=== PATIENT | female | born 1975 ===

== ENCOUNTER → 2021-03-15 11:47 | Outpatient (CLI) | payer OTHER, MEDICAID, SELFPAY ==
[2021-03-15 19:13] LABS: Add Manual Diff / Slide Review NO; Basophils Absolute Auto 100 /uL (0-100); Basophils Percent Auto 1.1 % (0-2); Eosinophils Absolute Auto 100 /uL (0-450); Eosinophils Percent Auto 1.1 % (2-4); Hemoglobin 13.1 g/dL (12.0-16.0); Lymphocytes Absolute Auto 2300 /uL (1100-4500); Mean Corpuscular HGB Conc 31.8 % (30-36); Mean Corpuscular Hemoglobin 28.6 PG (26-34); Mean Corpuscular Volume 89.8 fL (80-100); Monocytes Absolute Auto 700 /uL (0-900); Monocytes Percent Auto 8.1 % (3-14); Neutrophils Absolute Auto 5900 /uL (1500-7000); Neutrophils Percent Auto 64.7 % (50-75); Platelet Count 247 X10^3/uL (150-400); Red Blood Cell Count 4.57 X10^6/uL (4.0-5.2); Red Cell Distribution Width 13.7 % (11.6-14.8); White Blood Cell Count 9.2 X10^3/uL (4.5-11.0)
[2021-03-15 19:16] LABS: Alanine Aminotransferase 26 IU/L (<35); Albumin 4.6 g/dL (3.5-5.0); Albumin Globulin Ratio 1.5 (1.0-2.8); Alkaline Phosphatase 63 U/L (38-126); Aspartate Aminotransferase 41 IU/L (14-36); BUN Creatinine Ratio 21.3 (6-22); Bilirubin Total 0.3 mg/dL (0.2-1.3); Blood Urea Nitrogen 10 mg/dL (7-17); Calcium 9.8 mg/dL (8.4-10.2); Carbon Dioxide 25 mmol/L (22-32); Chloride 107 mmol/L (98-107); Cholesterol 206 mg/dL (140-199); Estimated Glomerular Filt Rate > 60.0 mL/min (>60); Globulin 3.1 g/dL (1.7-4.1); Glucose 86 mg/dL (70-100); HDL Cholesterol 66 mg/dL (40-60); HEMOLYSIS < 15 (0-50); LDL Cholesterol Calculated 107 mg/dL (<100); Potassium 4.1 mmol/L (3.4-5.1); Sodium 141 mmol/L (137-145); Total Protein 7.7 g/dL (6.3-8.2); Triglycerides 166 mg/dL (35-150)
[2021-03-15 19:44] LABS: Follicle Stimulating Hormone 27.1 mIU/mL
[2021-03-15 19:48] LABS: TSH w/ Reflex to FT4 1.23 uIU/mL (0.47-4.68)
== END ==
PROVIDERS: Family Provider Family Medicine; PCP Family Medicine; Visit Provider Physician Assistant Medical
DX: J45.20 Mild intermittent asthma, uncomplicated (principal); Z12.39 Encounter for other screening for malignant neoplasm of breast; Z12.4 Encounter for screening for malignant neoplasm of cervix; Z13.220 Encounter for screening for lipoid disorders; N92.0 Excessive and frequent menstruation with regular cycle; Z13.29 Encounter for screening for other suspected endocrine disorder; Z13.0 Encounter for screening for diseases of the blood and blood-forming organs and certain disorders involving the immune mechanism; Z13.228 Encounter for screening for other metabolic disorders; R73.9 Hyperglycemia, unspecified; L71.9 Rosacea, unspecified
CPT/HCPCS: 80053; 80061; 83001; 83002; 83036; 84443; 85025

== ENCOUNTER → 2022-08-23 11:23 | Outpatient (CLI) | payer OTHER, MEDICAID, SELFPAY ==
[2022-08-23 19:21] LABS: Add Manual Diff / Slide Review NO; Basophils Absolute Auto 100 /uL (0-100); Basophils Percent Auto 1.4 % (0-2); Eosinophils Absolute Auto 200 /uL (0-450); Eosinophils Percent Auto 2.4 % (2-4); Hematocrit 40.7 % (36-46); Hemoglobin 13.6 g/dL (12.0-16.0); Lymphocytes Absolute Auto 2400 /uL (1100-4500); Lymphocytes Percent Auto 37.6 % (25-40); Mean Corpuscular HGB Conc 33.5 % (30-36); Mean Corpuscular Hemoglobin 28.9 PG (26-34); Mean Corpuscular Volume 86.2 fL (80-100); Monocytes Absolute Auto 700 /uL (0-900); Monocytes Percent Auto 10.8 % (3-14); Neutrophils Absolute Auto 3100 /uL (1500-7000); Neutrophils Percent Auto 47.8 % (50-75); Platelet Count 246 X10^3/uL (150-400); Red Blood Cell Count 4.72 X10^6/uL (4.0-5.2); Red Cell Distribution Width 13.5 % (11.6-14.8); White Blood Cell Count 6.5 X10^3/uL (4.5-11.0)
[2022-08-23 19:41] LABS: Alanine Aminotransferase 32 IU/L (<35); Albumin 4.2 g/dL (3.5-5.0); Albumin Globulin Ratio 1.1 (1.0-2.8); Alkaline Phosphatase 73 U/L (38-126); Aspartate Aminotransferase 45 IU/L (14-36); BUN Creatinine Ratio 22.9 (6-22); Bilirubin Total 0.4 mg/dL (0.2-1.3); Blood Urea Nitrogen 11 mg/dL (7-17); Calcium 9.2 mg/dL (8.4-10.2); Carbon Dioxide 29 mmol/L (22-32); Chloride 102 mmol/L (98-107); Cholesterol 207 mg/dL (140-199); Estimated Glomerular Filt Rate > 60 mL/min (>60); Globulin 3.7 g/dL (1.7-4.1); Glucose 104 mg/dL (70-100); HDL Cholesterol 60 mg/dL (40-60); HEMOLYSIS < 15 (0-50); LDL Cholesterol Calculated 120 mg/dL (<100); Sodium 138 mmol/L (137-145); Total Protein 7.9 g/dL (6.3-8.2); Triglycerides 135 mg/dL (35-150)
[2022-08-23 19:43] LABS: Follicle Stimulating Hormone 13.4 mIU/mL; Luteinizing Hormone 11.4 mIU/mL
[2022-08-23 19:54] LABS: TSH w/ Reflex to FT4 1.63 uIU/mL (0.47-4.68)
== END ==
PROVIDERS: Family Provider Family Medicine; PCP Family Medicine; Visit Provider Physician Assistant Medical
DX: D64.9 Anemia, unspecified (principal); E78.1 Pure hyperglyceridemia; J30.89 Other allergic rhinitis; J45.20 Mild intermittent asthma, uncomplicated; J45.40 Moderate persistent asthma, uncomplicated; L71.9 Rosacea, unspecified; R73.9 Hyperglycemia, unspecified; T63.4 Toxic effect of venom of other arthropods
CPT/HCPCS: 80053; 80061; 83001; 83002; 84443; 85025

== ENCOUNTER → 2022-08-24 07:42 | Outpatient (CLI) | payer OTHER, MEDICAID, SELFPAY ==
[2022-08-29 14:25] LABS: Fecal Immunochemical Test Negative (Negative)
== END ==
PROVIDERS: Family Provider Family Medicine; PCP Family Medicine; Referring Provider Physician Assistant Medical; Visit Provider Physician Assistant Medical
DX: D64.9 Anemia, unspecified (principal); E78.1 Pure hyperglyceridemia; J30.89 Other allergic rhinitis; J45.20 Mild intermittent asthma, uncomplicated; J45.40 Moderate persistent asthma, uncomplicated; L71.9 Rosacea, unspecified; R73.9 Hyperglycemia, unspecified; T63.4 Toxic effect of venom of other arthropods
CPT/HCPCS: 82274

== ENCOUNTER 2025-03-11 07:31 | Day surgery (SDC) | payer OTHER, SELFPAY ==
--- NOTE | 2025-03-11 | PATH_ITS ---
[facility] Accession Number: [id number] No. of containers..01 Tissue . 01 Material submitted: . body - FIBROID . 01 Diagnosis: FIBROID (WEIGHT 4 GRAMS): Multiple fragments of myometrium; negative for significant cytologic atypia, increased mitotic activity, or regions of necrosis. Histologic features are consistent with a submucosal leiomyoma, in the appropriate clinical and imaging setting. Scant fragments of weakly proliferative endometrium; negative for significant atypia. [facility] 03/19/2025 1818 Local . 01 Electronically signed: . Rocio Hart MD, Pathologist NPI- [id number] . 01 Gross description: . Received in formalin labeled with two patient identifiers and fibroid, and consists of a 3.2 x 2.1 x 1.3 cm, 4 gram, aggregate of white, rubbery, morcellated tissues which are filtered and entirely submitted in cassettes A1-A2. ([id number]) /[facility] 03/16/2025 0843 Local . 01 Pathologist provided ICD-10: N92.0, N84.0, D25.9 . 01 CPT . 795491 Specimen Comment: A courtesy copy of this report has been sent to [phone] Performed at: [address] [place] [address], [place], [place] [id number] MD Collins Lucas MD Phone: [phone]
[2025-03-11 08:19] VITALS: BP 126/78; PULSE 66; RESP 16; TEMP 36.3; O2SAT 98; BMI 23.2
[2025-03-11] MEDS: ACETAMINOPHEN IV 1,000 MG/100 ML VIAL 400 MG IV (08:29)
[2025-03-11] MEDS: SCOPOLAMINE 1 PATCH TOP (08:29)
[2025-03-11] MEDS: LACTATED RINGERS 1,000 ML 42 ML IV (08:29)
--- NOTE | 2025-03-11 09:37 | P.HPOB_ITS ---
History of Present Illness History of Present Illness Reason for admission: vaginal bleeding Narrative: Vicky Sidhu is a 49 year old female 2 para 1 with an endometrial mass, she presents for a D&C hysteroscopy and resection of the mass which we suspect is a fibroid [facility] Medical History Asthma Anemia Rosacea, unspecified Family history of diabetes mellitus Encounter for screening for cardiovascular disorders Social History Smoking Status: Never smoker Meds Home Medications and Allergies Home Medications ?Medication ?Instructions ?Recorded ?Confirmed ?Type epinephrine 0.3 mg/0.3 mL 0.3 mg IM ONCE 03/13/2104/06 History injection, auto-injector (EpiPen 2-Adiel) metronidazole 0.75 % topical cream 1 applic topical DA YAO 03/15/21 08/23/22 History cetirizine 10 mg tablet (Zyrtec) 10 mg PO DAILY #90 ta bs 04/10/22 03/11/25 Rx fluticasone 250 mcg-salmeterol 50 1 inh inhalation BID #2 ea 04/13/22 08/23/22 Rx mcg/dose blistr powdr for inhalation (Advair Diskus) albuterol sulfate 90 mcg/actuation 2 puff inhalation Q 6H PRN 08/23/22 08/23/22 Rx aerosol inhaler (Ventolin HFA) shortness of breath or wheezing #8.5 grams lidocaine 5 % topical patch 1 patch topical DAILY pain #30 ea 10/05/22 Rx (Lidoderm) montelukast 10 mg tablet See Rx Instructions .Route 0 12/07/22 03/11/25 Rx .COMPLEX #90 tabs ferrous sulfate 325 mg (65 mg 325 mg PO DAILY 03/05/25 03/05/25 History iron) tablet (Iron (ferrous sulfate)) gabapentin 100 mg capsule 100 mg PO QPM 03/11/2503/11 History Allergies Allergy/AdvReac Type Severity Reaction Status Date / Time naproxen Allergy Unknown Verified 03/11/25 08:15 bee venom protein (honey bee) Allergy hives Verified 03/11/25 08:19 crayfish Allergy Verified 03/11/25 08:19 Exam Vital Signs (past 8 hours): - 03/11/25 08:19 Temperature 97.3 F L Pulse Rate 66 Respiratory Rate 16 Blood Pressure 126/78 Pulse Oximetry 98 Oxygen Delivery Method Room Air Oxygen Delivery Method Room Air Narrative Exam Narrative: HEENT: No thyromegaly, no anterior cervical or supraclavicular lymphadenopathy. Lungs:Clear to auscultation bilaterally, no wheezes. Cardiovascular: Regular rate and rhythm, no murmurs, rubs, or gallops. Abdomen: No scars. No hepatosplenomegaly. No masses palpable. External genitalia: Normal Vagina: Normal Cervix: Normal Bimanual exam: 7 Week size anteverted uterus. Mobile. Assessment & Plan Assessment & Plan narrative: Assessment: 49-year-old 2 para 1 with an endometrial mass and menorrhagia Plan: D&C hysteroscopy with resection of the mass under paracervical block and possible MAC The risks, benefits, and alternatives to the procedure were explained to the patient. The risks including bleeding, infection, and uterine perforation. She understands these risks and agrees to proceed. A full par Q was held and consent form was signed. Time-Based Coding :: [TOTAL MINUTES] spent with patient and on the chart (including review of chart, obtaining history, exam, reviewing outside data, placing orders, documenting exam and treatment plan, and counseling patient) on [DATE].
--- NOTE | 2025-03-11 09:39 | PM.PREOP ---
Pre-operative Note Interval Note History & Physical reviewed/Exam performed by Physician: Yes Changes to H&P: No H&P completed within 30 days and has changed as indicated here:: 03/11/25
--- NOTE | 2025-03-11 10:00 | SUR.OPER ---
Lithotomy on padded OR bed, head on pillow, arms secured on padded arm boards at <90 degrees abduction. Legs secured in padded yellow fins stirrups.
[2025-03-11] MEDS: LIDOCAINE 1% 20 ML INJ (10:07)
[2025-03-11 10:40] VITALS: BP 157/94; PULSE 55; RESP 16; TEMP 36.8; O2SAT 100
--- NOTE | 2025-03-11 10:43 | PM.GYNOP.1 ---
Operative Date/Time/Diagnoses Date of procedure: 03/11/25 Time of procedure: 10:43 Pre-op diagnosis: Menorrhagia Uterine mass Post-op diagnosis: same Procedure & Clinicians Procedure: Procedures Operation Date: 03/11/25 09:15 Actual Procedure Side Surgeon p Hysteroscopy D&C with MyoSure, resection of submucosal fibroid Tania Be MD Indications: 49-year-old with menorrhagia and a uterine mass Surgeon: Tania Be Anesthesia Type: MAC +/- and Local (Paracervical block) Operative Notes Findings: 7 week size anteverted uterus 4 cm fundal fibroid Both fallopian tube ostia observed Closure Type: not applicable Specimen(s): other (Submucosal fiber) Applied: none Estimated blood loss (mL): 5 Blood products transfused: none Procedure in detail: After informed consent was obtained, the patient was taken to the operating room where she was placed in the dorsal supine position. After IV sedation with fentanyl, the patient was placed in the dorsal lithotomy position, and prepped and draped in the usual sterile fashion. A time-out was performed. A bivalve speculum was placed into the vagina and the anterior lip of the cervix was grasped with a single-tooth tenaculum. Using 20 cc of 1% lidocaine, a paracervical block was performed by injecting at the 2, 4, 8, and 10 o'clock positions. The cervical os was sequentially dilated to the #8 Hegar dilator. The hysteroscope pass easily into the endometrial cavity. Initial inspection showed the findings noted above. Using the MyoSure XL, the submucosal fibroid was resected. Hemostasis was achieved. The instruments were removed from the uterus. The single-tooth tenaculum was removed from the anterior lip of the cervix. The bivalve speculum was removed from the vagina. Sponge, lap, and instrument counts were correct x2. The patient tolerated the procedure well, and was taken to PACU in stable condition. Cutting time: 3 minutes and 3 seconds Fluid deficit: 1300 cc Max pressure: 100mg Hg Complications: none Post-operative Condition: stable Disposition: PACU Plan for aftercare: Home after recovery
== END 2025-03-11 10:45 | disposition home or self-care (01) ==
PROVIDERS: PCP Student in an Organized Health Care Education/Training Program; Referring Provider Student in an Organized Health Care Education/Training Program; Visit Provider Obstetrics & Gynecology
PROC: 0UDB8ZZ Extraction of Endometrium, Via Natural or Artificial Opening Endoscopic (ICD-10-PCS; CPT 58558; principal; 2025-03-11 09:15)
DX: N92.0 Excessive and frequent menstruation with regular cycle (principal); D25.0 Submucous leiomyoma of uterus
CPT/HCPCS: 58561; J0131; J1885; J2405; J3010